=== PATIENT | male | born 2000 | race Caucasian/White ===

== ENCOUNTER 2024-03-12 15:56 | Emergency (ER) | payer BC, SELFPAY ==
[2024-03-12 15:57] VITALS: BP 152/91
--- NOTE | 2024-03-12 17:05 | ED.GENMED ---
History of Present Illness
General
Chief Complaint: Skin Problem
Source: patient
Exam Limitations: none
Time Seen by Provider: 03/12/24 16:58
Nursing documentation reviewed up to this point in time: agreed with
History of Present Illness
History of Present Illness:
Patient is a 23-year-old male who presents to the ER for evaluation of poison faina. He has had poison over the past 2 weeks is on day 5 of a Medrol Dosepak but symptoms are getting worse. He denies any difficulty breathing. He reports poison faina
simply spreading. He denies any fever chills , difficulty breathing.
Review of Systems
Review of Systems
Allergies reviewed?: Yes
All Other Systems: ROS reviewed and negative except as documented in HPI and ROS
Constitutional: Reports no symptoms; Denies fever, fatigue or chills
Skin: Reports itching and other (poison faina rash )
Neurological: Reports no symptoms
Psychiatric: Reports no symptoms
Phy Exam
General Physical Exam
General Presentation: no apparent distress
General age: appears stated age
General Skin: warm and dry
General Habitus: normal
General Mental: alert
General Hydration: appears well hydrated
Neurological Exam
Neurological Exam: alert and oriented x3
Musculoskeletal Exam
Musculoskeletal Exam: full ROM and other ( )
Skin Exam
Skin Exam: normal color, warm/dry and other (+ linear type fluid filled and raised rash to b /l arms/legs no rash to face no erythema no purulent drainage )
Course
Orders/Labs/Results
Orders:
Orders
03/12/24 17:08
Prednisone [Deltasone] 40 mg PO NOW STA
Vital Signs
Initial and Last Documented VS:
Initial Vital Signs
Temp Pulse Resp BP Pulse Ox
98.7 F 75 15 152/91 98
03/12/24 15:57 03/12/24 15:57 03/12/24 15:57 03/12/24 15:57 03/12/24 15:57
Last Documented Vital Signs
Temp Pulse Resp BP Pulse Ox
98.7 F 75 15 152/91 98
03/12/24 15:57 03/12/24 15:57 03/12/24 15:57 03/12/24 15:57 03/12/24 15:57
[employer] System Operator consulted with Physician
Land[employer] Collection System Operator consulted with physician?: Yes
MDM/Problems Addressed
MDM/Problems Addressed:
Patient with poison faina rash for the past 2 weeks not improving on Medrol Dosepak. With extent of poison faina and the fact that this is getting worse will DC on higher dose prescription for longer course. Patient no acute distress no difficulty
breathing no facial involvement.
*Critical Care Note
Total Time (30-74mins, 75-104mins- exclusive of procedures): Not Applicable
ED Attending Note
-
Portions of this chart may have been created with voice recognition software.� Occasional wrong word or��sound alike� substitutions may have occurred due to the inherent limitations of voice recognition software.
Discharge Plan
Departure
Patient Disposition: Home (Routine Discharge)
Date of Disposition: 03/12/24
Time of Disposition: 17:06
Patient with high blood pressure during this ER visit?: Yes
Condition: Fair
Covid-19: Not Applicable
Discharge Problem:
Poison faina
Instructions: Poison faina
Prescriptions:
New
prednisone 10 mg Tablet
See Rx Instructions .ROUTE .COMPLEX Qty: 30 0RF
Rx Instructions:
Take By Mouth:
40 mg daily x3 days, 30 mg daily x3 days,
20 mg daily x3 days, 10 mg daily x3 days.
Activity Restrictions/Additional Instructions:
As discussed stop Medrol Dosepak and start higher prescription for steroids. You were given first dose here in the ER start tomorrow. Follow-up with family doctor in the next several days return if any worsening of symptoms.
Interventions
Interventions:
*Risk Screen - Suicide Last Done: 03/12/24 15:57
*General Assessment Last Done: 03/12/24 15:57
Discharge Date and Time
Print Language: BHUTANESE
[2024-03-12] MEDS: DELTASONE 40 MG PO (17:15)
[2024-03-12 17:22] VITALS: BP 137/81
== END 2024-03-12 17:23 | disposition home or self-care (01) ==
LOC: EMR 15:56
PROVIDERS: EMERGENCY PHYSICIAN Emergency Medicine; FAMILY PHYSICIAN Pediatrics
DX: L23.7 Allergic contact dermatitis due to plants, except food (principal)
CPT/HCPCS: 99282